=== PATIENT | female | born 1995 | race Caucasian/White ===

== ENCOUNTER 2017-04-11 19:49 | Inpatient (IN) ==
[2017-04-11] MEDS ORDERED: REGLAN PO ONE (20:00)
[2017-04-11] MEDS ORDERED: PEPCID IV PRN (20:00)
[2017-04-11] MEDS ORDERED: STADOL IV PRN ×3 (20:00)
[2017-04-11] MEDS ORDERED: TYLENOL PO PRN (20:00)
[2017-04-11] MEDS ORDERED: ZOFRAN IV PRN (20:00)
[2017-04-11] MEDS ORDERED: PEPCID PO PRN (20:00)
[2017-04-11] MEDS ORDERED: PEPCID PO ONE (20:00)
[2017-04-11] MEDS ORDERED: KEFZOL 1 GM/D5W 1 GM/50 ML IVPB IV PRN (20:00)
[2017-04-11] MEDS ORDERED: AMBIEN PO PRN (20:00)
[2017-04-11] MEDS ORDERED: BRETHINE SUBQ PRN (20:00)
[2017-04-11] MEDS: LR 1,000 ML IV ONE (20:49)
[2017-04-11 21:14] LABS: MANUAL DIFF NEEDED? NO
[2017-04-11 21:17] LABS: BASO% 0.1 % (0.0-0.8); EOS# 0.19 X1000 (0.0-0.7); EOS% 1.4 % (0.0-10.0); HEMATOCRIT 34.6 % (37.0-47.0); HEMOGLOBIN 11.9 g/dL (12.0-16.0); IMM GRAN% 0.7 % (0.0-0.5); LYMPH# 2.09 X1000 (1.2-3.4); LYMPH% 15.5 % (20.5-51.1); MCH 32.2 PG (27-31); MCHC 34.4 g/dL (33-37); MCV 93.8 FL (81-99); MONO# 0.97 X1000 (0.11-0.59); MONO% 7.2 % (1.7-9.3); MPV 9.8 FL (7.4-10.4); NEUT% 75.1 % (42.2-75.2); PLT 258 X1000 (130-400); RBC 3.69 XMIL (4.2-5.4)
[2017-04-11 21:21] LABS: UR AMPHETAMINES QUAL NONE DETECTED (NONE DETECT); UR BARBITUATES QUAL NONE DETECTED (NONE DETECT); UR BENZODIAZEPIN QUAL NONE DETECTED (NONE DETECT); UR CANNABINOIDS QUAL NONE DETECTED (NONE DETECT); UR COCAINE QUAL NONE DETECTED (NONE DETECT); UR MDMA QUAL NONE DETECTED (NONE DETECT); UR METHADONE QUAL NONE DETECTED (NONE DETECT); UR METHAMPHETAMINE QUAL NONE DETECTED (NONE DETECT); UR OPIATES QUAL NONE DETECTED (NONE DETECT); UR OXYCODONE QUAL NONE DETECTED (NONE DETECT); UR PCP QUAL NONE DETECTED (NONE DETECT); UR TCA QUAL NONE DETECTED (NONE DETECT)
[2017-04-11 21:54] LABS: URINE SOURCE VOIDED
[2017-04-11 21:56] LABS: BILIRUBIN URINE NEGATIVE (NEGATIVE); BLOOD URINE NEGATIVE (NEGATIVE); CLARITY CLEAR (CLEAR); COLOR YELLOW; GLUCOSE URINE NEGATIVE (NEGATIVE); LEUKOCYTES URINE TRACE (NEGATIVE); NITRITE URINE NEGATIVE (NEGATIVE); PROTEIN URINE NEGATIVE (NEGATIVE); UROBILINOGEN URINE NORMAL
[2017-04-11] MEDS ORDERED: CYTOTEC PO ONE (22:00)
[2017-04-12] MEDS: CYTOTEC PO SCH ×2 (01:50→06:12)
[2017-04-12] MEDS ORDERED: PITOCIN 30 UNITS/LR 30 UNITS/500 ML IV.SOLN IV SCH (06:30)
[2017-04-12] MEDS ORDERED: FENTANYL-BUPIV-NS 2 MCG-0.1% 200 ML EPIDURAL SCH (08:00)
[2017-04-12] MEDS: LR 1,000 ML IV ONE (10:57)
[2017-04-12] MEDS ORDERED: LR 1,000 ML IV SCH (11:00)
[2017-04-12] MEDS ORDERED: XYLOCAINE 1% INJ ONE (11:06)
[2017-04-12] MEDS ORDERED: MINERAL OIL TOP ONE (11:06)
[2017-04-12] MEDS ORDERED: BENADRYL IV PRN (12:34)
[2017-04-12] MEDS ORDERED: PERI MEDS (DERMOPLAST/NUPERCAINAL/TUCKS) MISC PRN (12:34)
[2017-04-12] MEDS ORDERED: MINERAL OIL PO PRN (12:34)
[2017-04-12] MEDS ORDERED: PITOCIN 30 UNITS/LR 30 UNITS/500 ML IV.SOLN IV ONE (12:34)
[2017-04-12] MEDS ORDERED: XYLOCAINE-MPF 1% INJ PRN (12:34)
[2017-04-12] MEDS ORDERED: BOOSTRIX VACCINE IM ONE (12:34)
[2017-04-12] MEDS ORDERED: NORCO-5 PO PRN (12:34)
[2017-04-12] MEDS ORDERED: BENADRYL PO PRN (12:34)
[2017-04-12] MEDS ORDERED: PERCOCET-10 PO PRN (12:34)
[2017-04-12] MEDS ORDERED: PERCOCET-5 PO PRN (12:34)
[2017-04-12] MEDS ORDERED: CYTOTEC PO PRN (12:34)
[2017-04-12] MEDS ORDERED: AMBIEN PO PRN (12:34)
[2017-04-12] MEDS ORDERED: NORCO-10 PO PRN (12:34)
[2017-04-12] MEDS ORDERED: M-M-R II VACCINE SUBQ ONE (12:34)
[2017-04-12] MEDS ORDERED: HYDROXYZINE IM PRN (12:34)
[2017-04-12] MEDS ORDERED: HYDROXYZINE PO PRN (12:34)
[2017-04-12] MEDS ORDERED: PITOCIN IM PRN (12:34)
[2017-04-12] MEDS ORDERED: PITOCIN 20 UNITS/LR 20 UNITS/1,000 ML IV.SOLN IV SCH (12:34)
[2017-04-12] MEDS ORDERED: METHERGINE IM ONE (15:00)
--- NOTE | 2017-04-12 15:36 | OPERATIVE NOTE ---
PROCEDURE DATE: 04/12/2017 DELIVERY NOTE DELIVERING PHYSICIAN: Solo Prince MD TYPE OF DELIVERY: Spontaneous controlled vaginal delivery. ANESTHESIA: IV sedation. FINDINGS: At 12:04, a 7 pound 2 ounce female infant was delivered in occipitoanterior presentation. scores were 9 at 1 minute and 10 at 5 minutes. DELIVERY SUMMARY: Wanda Fernández is a 21-year-old primigravida who is at 40-1/2 weeks gestation. Her blood type is O-positive, rubella immune. Hepatitis B surface antigen, HIV, and group B strep were negative. The patient was brought into the labor and delivery last night for induction of labor as she was postdates. She received Cytotec. This morning, she was fingertip dilated and membranes were ruptured revealing light meconium-stained fluid. heart tones were category I. IV Pitocin was begun and she progressed through labor without signs of distress or dystocia. She received IV sedation. She became complete and began pushing. She very soon crowned. At that point, she was placed in dorsal lithotomy position. The perineum was prepped and draped in the usual fashion. Spontaneous controlled vaginal delivery occurred. Once the 's head was delivered, the nuchal cord was reduced. The shoulders and body delivered without complications. The oropharynx was bulb suctioned. The cord was clamped and cut. The infant was handed to the nurses for further care and evaluation. Cord blood was obtained. The placenta was spontaneously delivered and was intact. There were 1st degree right labial and midline tears. The midline tear was bleeding. The right labial tear was not. We therefore did a [id number] Vicryl suture in the midline tear for hemostasis. We used local anesthesia. Blood loss was approximately 200 mL. The patient remained in the LDR, recovering without difficulty. cc: MD Solo Gonzalez MD
[2017-04-12] MEDS ORDERED: EPIFOAM FOAM TOP PRN (16:50)
[2017-04-12] MEDS ORDERED: PERICOLACE PO SCH (21:00)
[2017-04-13 06:17] LABS: HEMATOCRIT 34.2 % (37.0-47.0); HEMOGLOBIN 11.4 g/dL (12.0-16.0); MCHC 33.3 g/dL (33-37); MCV 96.1 FL (81-99); MPV 10.2 FL (7.4-10.4); RBC 3.56 XMIL (4.2-5.4)
[2017-04-13] MEDS: HEMOCYTE PLUS CAPSULE PO SCH (09:06)
[2017-04-13] MEDS: PRECARE PO SCH (09:06)
[2017-04-14] MEDS: MOTRIN PO PRN ×2 (00:14→10:05)
[2017-04-14 09:52] VITALS: BP 116/68
[2017-04-14] MEDS: HEMOCYTE PLUS CAPSULE PO SCH (10:05)
[2017-04-14] MEDS: PRECARE PO SCH (10:05)
== END 2017-04-14 10:45 | disposition home or self-care (01) ==
LOC: P.LD 19:49 → P.WC 04-12 15:41
PROVIDERS: ADMIT Obstetrics & Gynecology; ATTEND Obstetrics & Gynecology